=== PATIENT | female | born 1960 | race Hispanic/Latino ===

== ENCOUNTER → 2020-06-04 | Outpatient (CLI) | payer OTHER | LOC: MRI 09:56 | PROVIDERS: ATTEND Radiology Diagnostic Radiology | DX: R20.0 Anesthesia of skin (principal) ==

== ENCOUNTER 2021-10-15 09:55 | Emergency (ER) | payer OTHER ==
[~2021-10-15] VITALS: Ht 160 cm; Wt 78.0 kg
[2021-10-15] MEDS ORDERED: ACETAMINOPHEN 325 MG TAB PO ONE (10:15)
[2021-10-15] MEDS ORDERED: NAPROSYN500 MG PO (12:36)
[2021-10-15 13:09] VITALS: BP 95/57
== END 2021-10-15 12:50 | disposition home or self-care (01) ==
LOC: ER 10:05
DX: S93.492A Sprain of other ligament of left ankle, initial encounter (principal); S70.01XA Contusion of right hip, initial encounter; W01.0XXA Fall on same level from slipping, tripping and stumbling without subsequent striking against object, initial encounter; Y93.01 Activity, walking, marching and hiking; Y92.481 Parking lot as the place of occurrence of the external cause; I10 Essential (primary) hypertension; E11.9 Type 2 diabetes mellitus without complications; E03.9 Hypothyroidism, unspecified; E78.5 Hyperlipidemia, unspecified; K21.9 Gastro-esophageal reflux disease without esophagitis
CPT/HCPCS: 99283

== ENCOUNTER 2024-04-08 01:48 | Emergency (ER) | payer BC, MEDICARE ==
[~2024-04-08] VITALS: Ht 160 cm; Wt 73.9 kg
[~2024-04-08 01:48] MED LIST: NAPROSYN500 MG PO
[2024-04-08] MEDS: KETOROLAC TROMETHAMINE 30 MG/ML VIAL IM STA (02:30)
[2024-04-08 02:50] LABS: CLARITY,URINE SL CLOUDY (CLEAR); COLOR,URINE YELLOW (YELLOW); LEUKOCYTE ESTERASE ,URINE NEGATIVE (NEGATIVE); NITRITE,URINE POSITIVE (NEGATIVE); PH,URINE 7 (5 - 7); PROTEIN,URINE DIPSTICK NEGATIVE (NEGATIVE)
[2024-04-08 02:51] LABS: BILIRUBIN,URINE NEGATIVE (NEGATIVE); GLUCOSE, URINE NEGATIVE (NEGATIVE); KETONES,URINE NEGATIVE (NEGATIVE); URINE UROBILINOGEN 1 mg/dL (0.2 - 1)
[2024-04-08 02:56] LABS: BACTERIA,URINE MANY /HPF; EPITHELIAL CELLS,URINE FEW /LPF; RBC,URINE 0-5 /HPF (0-5); WBC,URINE (MAN) 0-5 /HPF (0-5)
[2024-04-08 03:44] VITALS: PULSE 65; RESP 16; TEMP 97.9; O2SAT 100
== END 2024-04-08 03:44 | disposition home or self-care (01) ==
LOC: ER 01:51
DX: R10.30 Lower abdominal pain, unspecified (principal); G89.29 Other chronic pain; I10 Essential (primary) hypertension; E11.9 Type 2 diabetes mellitus without complications
CPT/HCPCS: 74176; 81001; 99283; J1885